=== PATIENT | female | born 1940 | race Caucasian/White ===

== ENCOUNTER 2022-12-10 13:14 | Inpatient (IN) | payer OTHER, BC ==
[~2022-12-10] VITALS: Ht 162.6 cm; Wt 88.0 kg
[2022-12-10 13:15] VITALS: BP_SYST 135
--- NOTE | 2022-12-10 13:17 | NUR ---
Code stroke called at this time
--- NOTE | 2022-12-10 13:19 | NUR ---
PT PRESENTS TO ED C/O LKWT APPROXIMATELY YESTERDAY AFTERNNON, SYMPTOMS REPORTED WERE DIZZINESS AND BEING "TONGUE TIED".PT H/O VERTIGO,R BREAST CA WITH LYMPHNODES REMOVED R ARM AND DM. PT REPORTS DIZZINESS PERSISTS.
--- NOTE | 2022-12-10 13:20 | NUR ---
ER at bedside examining patient.
--- NOTE | 2022-12-10 13:23 | NUR ---
accucheck: blood sugar 185 notified MD Espinoza.
--- NOTE | 2022-12-10 13:23 | NUR ---
Placed in room 01 . Placed on awake overnight monitor, blood pressure machine and pulse oximeter. To gown for exam. Side rails up.
--- NOTE | 2022-12-10 13:24 | NUR ---
Pt to CT via oscar accompanied by SURESH Fu
--- NOTE | 2022-12-10 13:40 | NUR ---
Assumed care of patient with patient alert and oriented x4, vitals as noted observed with sinus tachycardia with occasional PVCS noted, patient denies any pain, patient performing all commands with no problem, from observed with strong ferryboat helper observed bilateral,will continue to monitor p-atient, urine remainbs pending with patient aware ua needed, will continue to monitor patient. Addendum: 12/10/22 at 1453 by [email or web address] report obtained from Terry PRINCE, CHARGE NURSE.
[2022-12-10 13:59] LABS: BASOPHILS % (AUTO) 0.3 % (0.0-2.0); EOSINOPHILS # (AUTO) 0.1 K/uL (0.0-0.4); EOSINOPHILS % (AUTO) 1.5 % (0.0-4.0); HEMATOCRIT 40.9 % (36-48); HEMOGLOBIN 13.7 g/dL (12.0-16.0); LYMPHOCYTES # (AUTO) 1.2 K/uL (1.0-5.5); LYMPHOCYTES % (AUTO) 14.5 % (20.5-51.5); MEAN CORPUSCULAR HEMOGLOBIN 32 pg (27-31); MEAN CORPUSCULAR HGB CONC 33 % (32-36); MEAN CORPUSCULAR VOLUME 97 fL (79.0-98.0); MONOCYTES # (AUTO) 0.2 K/uL (0.0-1.0); MONOCYTES % (AUTO) 2.7 % (1.7-9.3); NEUTROPHILS # (AUTO) 6.5 K/uL (1.8-7.7); PLATELET COUNT (AUTO) 210 K/uL (130-430); RED BLOOD CELL COUNT(AUTO) 4.23 MIL/uL (4.2-6.2); WHITE BLOOD COUNT (AUTO) 8.1 K/uL (4.8-10.8)
[2022-12-10 14:15] LABS: ANION GAP 16 (5-15); CALCIUM 8.4 mg/dL (8.4-11.0); CHLORIDE 99 mmol/L (98-107); CREATININE 1.17 mg/dL (0.55-1.30); GLUCOSE 184 mg/dL (70-99); UREA NITROGEN, BLOOD 17 mg/dL (8-21)
[2022-12-10 14:22] LABS: ALANINE AMINOTRANSFERASE 40 U/L (12-78); ALBUMIN 3.6 g/dL (3.4-4.8); ASPARTATE AMINOTRANSFERASE 51 U/L (10-37); CHOLESTEROL 186 mg/dL (<200); TOTAL BILIRUBIN 0.4 mg/dL (0.0-1.0)
[2022-12-10 14:27] LABS: PROTHROMBIN TIME 10.7 SECS (9.5-12.5)
[2022-12-10] MEDS ORDERED: iohexoL 350 mgI/mL, 100 ML INFUS..BTL IV ONE (15:26)
--- NOTE | 2022-12-10 15:50 | NUR ---
patient remains alert and oriented x4, family at bedside, consent form obtained for CTA of head and neck, patient remains in no acute distress, vitals as noted, denies any pauin, remauns with urine sample pending, per etl data architect patient to ct scan via rney.
[2022-12-10 16:57] LABS: BILIRUBIN,URINE NEGATIVE (NEGATIVE); BLOOD, URINE 2+ (NEGATIVE); CLARITY/URINE CLEAR (CLEAR); COLOR,URINE YELLOW (YELLOW); GLUCOSE,URINE TRACE (NEGATIVE); KETONES,URINE 1+ (NEGATIVE); LEUKOCYTE ESTERASE ,URINE NEGATIVE (NEGATIVE); NITRITE, URINE NEGATIVE (NEGATIVE); PH,URINE 6.5 (5.0-8.0); PROTEIN URINE 2+ (NEGATIVE); UROBILINOGEN,URINE 0.2 (0.2-1.0)
--- NOTE | 2022-12-10 16:58 | NUR ---
COVID SWAB COLLECTED AND SENT TO LAB.
--- NOTE | 2022-12-10 17:03 | NUR ---
Admit bed requested Patient will be admitted to care of [[facility]]. Admitted to [Tele ] unit. Diagnosis [ TIA ] Inpatient (Yes or No) [Yes ] Observation (Yes or No) [No] Orientation concerns or request close to nursing station (Yes or No) [N/A] Covid Status [PENDING] On vent or bipap [N/A] Isolation requirements [N/A] Needs a sitter [N/A] From Home (Yes or if No enter name of facility) [YES] Requires Dialysis (Yes or No) [N/A ] Med Rec Completed (Yes of No) []
[2022-12-10 17:18] LABS: BARBITURATE, URINE NEGATIVE (NEG <=200); BENZODIAZEPINE, URINE NEGATIVE (NEG <=150); CANNABINOID, URINE POSITIVE (NEG <=50); COCAINE, URINE NEGATIVE (NEG <=150); METHAMPHETAMINES SCREEN,URINE NEGATIVE (NEG <=500); OPIATE, URINE NEGATIVE (NEG <=100); PHENCYCLIDINE SCREEN,URINE NEGATIVE (NEG <=25); URINE AMPHETAMINE NEGATIVE (NEG <=500); URINE METHADONE NEGATIVE (NEG <=200); URINE OXYCODONE SCREEN NEGATIVE (NEG <=100); URINE PROPOXYPHENE SCREEN NEGATIVE (NEG <=300)
[2022-12-10 17:19] LABS: BACTERIA,URINE FEW /HPF (None Seen); MUCUS,URINE None Seen /LPF (None Seen); RBC,URINE 0-3 /HPF (0-3); UR TRICYCLIC ANTIDEPRESSANTS NEGATIVE (NEG <=300); WBC,URINE 0-3 /HPF (0-3)
--- NOTE | 2022-12-10 18:44 | NUR ---
SINUS RHYTHM NOTED PATIENT LYING QUIETLY, AWAITING ADMIT BED, VITALS NOTED, PATIENT DENIES ANY PAIN, AWAITING TELEMETRY BED, DAUGHTER AT5 BEDSIDE, WILL CONTINUE TO MONUITOR POATIEN, ALERT AND ORIENTED X4.
[2022-12-10] MEDS ORDERED: DOCUSATE SODIUM 100 MG CAPSULE PO PRN (18:45)
[2022-12-10] MEDS ORDERED: ONDANSETRON HCL 4 MG/2 ML VIAL IVP PRN (18:45)
[2022-12-10] MEDS ORDERED: MAGNESIUM SULFATE 50 ML IV PRN (18:45)
[2022-12-10] MEDS ORDERED: MORPHINE 2 MG/ML INJ. SYRINGE IVP PRN ×2 (18:45)
[2022-12-10] MEDS ORDERED: MUPIROCIN 2% TOPICAL OINTMENT 22 GM NS PRN (18:45)
[2022-12-10] MEDS ORDERED: ACETAMINOPHEN 325 MG TABLET PO PRN ×2 (18:45→19:00)
[2022-12-10] MEDS ORDERED: POTASSIUM CHLORIDE 20 MEQ TAB.PRT.SR PO PRN (18:45)
[2022-12-10] MEDS ORDERED: NALOXONE HCL 0.4 MG/ML AMP (NARCAN) IVP PRN ×2 (18:45)
[2022-12-10] MEDS ORDERED: ZOLPIDEM TARTRATE 5 MG TABLET PO PRN (18:45)
[2022-12-10] MEDS ORDERED: ALPRAZolam 0.25 MG TABLET PO ONE (19:00)
--- NOTE | 2022-12-10 19:10 | NUR ---
PATIENT LEGAL OPERATIONS MANAGER ALARMING WITH OBSERVED HEART RATE 213, PATIENT DENIES CHEST PAIN OR SOB HOWEVER COMPLAINS OF JAW TIGHTNESS, NON-REBREATHER MASK PLACED WITH STAT EKG DONE, EKG SHOWING SINUS TACYCARDIA, WITH BLOOD PRESSURE 140/63, MD AWARE.
[2022-12-10] MEDS ORDERED: cefTRIAXone 1 GM VIAL ONE (19:34)
[2022-12-10] MEDS: cefTRIAXone 1 GM in D5W 50 ML IV SCH (19:35)
[2022-12-10] MEDS: NACL 0.9% 1,000 ML IV SCH (19:36)
--- NOTE | 2022-12-10 22:15 | NUR ---
ADMISSION NOTE Received patient from ER via gurney. Patient admitted with diagnosis of TIA. Patient is awake, alert, oriented X 4. Breathing even and nonlabored on RA. PT has nonproductive cough but denied soared throat. adulatory with assist. No s/s of acute distress or pain at this moment. Patient oriented to hospital room, call light, toileting, pain management and safety-teach back done. Personal belongings checked and Belongings List documented. Call light within reach. continue to monitor
[2022-12-10 22:33] VITALS: BP_SYST 140
--- NOTE | 2022-12-11 00:02 | NUR ---
Rounding Note GA said she couldn't fall a sleep. asked sleeping pill. administer Ambient as ordered. safety checks in place continue to monitor
--- NOTE | 2022-12-11 01:54 | NUR ---
KDur PT's potassium level is 3.1. Given Kdur as ordered.
[2022-12-11 05:45] LABS: BASOPHILS % (AUTO) 0.4 % (0.0-2.0); EOSINOPHILS # (AUTO) 0.2 K/uL (0.0-0.4); EOSINOPHILS % (AUTO) 2.6 % (0.0-4.0); HEMATOCRIT 39.1 % (36-48); HEMOGLOBIN 13.1 g/dL (12.0-16.0); LYMPHOCYTES # (AUTO) 1.7 K/uL (1.0-5.5); LYMPHOCYTES % (AUTO) 24.4 % (20.5-51.5); MEAN CORPUSCULAR HEMOGLOBIN 32 pg (27-31); MEAN CORPUSCULAR HGB CONC 33 % (32-36); MEAN CORPUSCULAR VOLUME 96 fL (79.0-98.0); MONOCYTES # (AUTO) 0.4 K/uL (0.0-1.0); MONOCYTES % (AUTO) 6.2 % (1.7-9.3); NEUTROPHILS # (AUTO) 4.7 K/uL (1.8-7.7); NEUTROPHILS % (AUTO) 66.4 % (40.0-70.0); PLATELET COUNT (AUTO) 216 K/uL (130-430); RED BLOOD CELL COUNT(AUTO) 4.07 MIL/uL (4.2-6.2); RED CELL DISTRIBUTION WIDTH 13.4 % (9.0-15.0); WHITE BLOOD COUNT (AUTO) 7.1 K/uL (4.8-10.8)
[2022-12-11 06:22] LABS: ANION GAP 12 (5-15); CALCIUM 8.3 mg/dL (8.4-11.0); CHLORIDE 104 mmol/L (98-107); CREATININE 0.84 mg/dL (0.55-1.30); GLUCOSE 104 mg/dL (70-99); UREA NITROGEN, BLOOD 12 mg/dL (8-21)
--- NOTE | 2022-12-11 06:49 | NUR ---
Mucus PT reported lots of mucus in her throat and asked medication. called Dr. Monet and notified PT's condition. said he will take care of it.
--- NOTE | 2022-12-11 07:03 | NUR ---
Closing Note PT sitting on the bed and said easier to breath. PT feels hungry and waiting for breakfast. No s/s of acute distress or pain. bed alarm on. safety checks in place. endorsed to day shift nurse
[2022-12-11 08:00] VITALS: BP_SYST 142
--- NOTE | 2022-12-11 08:00 | NUR ---
Start of shift Pt sitting on side of bed eating her breakfast. Tele unit attached and intact. Pt's bed in low position and bed alarm on. Side rails raised and no needs noted. No SOB/resp distress or chest pain/discomfort was noted. No needs noted at this time. Call light within reach.
[2022-12-11] MEDS: ASPIRIN 81 MG TABLET(ECOTRIN) PO SCH (08:23)
[2022-12-11] MEDS: NACL 0.9% 1,000 ML IV SCH (08:23)
[2022-12-11] MEDS: HEPARIN SODIUM,PORCINE 5,000 UNITS/ML VIAL SUBCUT SCH ×2 (08:26→19:58)
--- NOTE | 2022-12-11 08:45 | NUR ---
CONSULT NEUROLOGY TIA JEFFRY RAMACHANDRAN SENT TEXT MESSAGE TO DR AREVALO
[2022-12-11 11:18] VITALS: BP_SYST 127
[2022-12-11] MEDS ORDERED: MECLIZINE HCL 25 MG TABLET (ANITVERT) PO PRN (12:15)
--- NOTE | 2022-12-11 13:30 | NUR ---
Note Pt prefers to sit on side of bed and eat and talk, states when she lies down she starts coughing and gets SOB. Pt's son Yovani was at bedside and other family members throughout the shift. IV in LFA intact and patent infusing IVF's well. Call light within reach.
[2022-12-11] MEDS ORDERED: METO-544 PO (14:16)
[2022-12-11] MEDS ORDERED: SYN50 PO (14:19)
[2022-12-11] MEDS ORDERED: LOVA10TA55 PO (14:19)
[2022-12-11 16:58] VITALS: BP_SYST 145
[2022-12-11] MEDS: cefTRIAXone 1 GM in D5W 50 ML IV SCH (18:05)
--- NOTE | 2022-12-11 18:50 | NUR ---
End of shift Pt sitting on side of bed eating her dinner. Pt's daughter and son (Yovani) at bedside most of shift. Pt's IV in left hand intact and patent infusing IVF's well. Pt was maintained with safety precautions all shift. Pt was checked on q1' and PRN all shift for needs and care. Bed in low position and side rails raised. Call light within reach. Pt's coughing has been persistent throughout the shift.
[2022-12-11 19:55] VITALS: BP_SYST 157
--- NOTE | 2022-12-11 19:55 | NUR ---
PM ASSESSMENT; -Patient is awake, alert, oriented X 4. Pt denies any chest pain,pain,sob,or any acute distress. Pt is sitting on chair with daughter is at bedside. Discussed poc,all safety measures, they verbalized understanding. Patient oriented to hospital room, call light, toileting, pain management and safety-teach back done. IV site patent no s/s any infiltration noted. IVF infusing well. side rails x2, Call light within reach. Cont to monitor pt.
[2022-12-11] MEDS: guaiFENesin 200 MG/10 ML UDC PO PRN (19:56)
[2022-12-11] MEDS: LORazepam 2 MG/ML VIAL IVP PRN (19:58)
--- NOTE | 2022-12-11 19:58 | NUR ---
NOTES; ATIVAN 1MG IVP GIVEN UPON PT REQUEST -Pt is laying in bed while given Ativan IVP. Instructed pt and dtr safety issue regarding side effects of Ativan including dizziness, unsteady gaits and fall risk, not to get OOB w/o using call light for assistance, pt verbalized she will call when she needs to use bathroom. Bed alarmed, side rails x3 ,call light w/in reach. Cont to monitor pt.
--- NOTE | 2022-12-11 20:25 | NUR ---
NOTES; -Pt went to bathroom with unsteady gaits, assisting pt back to bed safely and instructed pt to get OOB bed by herself, she verbalized that she won't. She stated that she doesn't feel good after received Ativan. Askd pt how she feels, she said that she feel dizziness. Reminded pt that it is the Ativan side effect. Suggested Purewick to avoid using bathroom at night d/t unsteady gaits this time, pt agreed to have Purewick in place. Bed alarmed, side rails x3,call light w/in reach. Cont to monitor pt.
--- NOTE | 2022-12-11 22:06 | NUR ---
NOTES; -Pt is now out of bed w/o using a call light. Pt stated," I don't feel right and feel funny." Asked pt in detail what is feel funny and not right mean. She elaborated that she feel dizzy and see many people. Informed pt that is the side effect of Ativan. Will move pt to closer to Nurses' station once room is cleaned. Now, pt is resting in bed. bed alarmed, side rails x3,call light w/in reach. Monitoring pt at bedside. Cont to monitor pt.
[2022-12-12 00:15] VITALS: BP_SYST 180
[2022-12-12] MEDS ORDERED: cloNIDine HCL 0.1 MG TABLET PO ONE (00:15)
--- NOTE | 2022-12-12 00:15 | NUR ---
NOTES; NOTIFIED Mauricio CAMPBELL REGARDING ELEVATED MJ=534/82, RETOOK OS=401/70, -MD ORDERED CLONIDINE 0.2MG PO X1 NOW PER MD. WILL GIVE WHEN AVAILABLE IN [facility].
[2022-12-12] MEDS: guaiFENesin 200 MG/10 ML UDC PO PRN ×2 (00:20→04:41)
[2022-12-12] MEDS: NACL 0.9% 1,000 ML IV SCH (00:21)
--- NOTE | 2022-12-12 00:24 | NUR ---
NOTES; -Pt is sitting on bed. Gave Clonidine 0.2mg po for elevated JR=915/70 and Robitussin for cough. Pt stated that she couldn't sleep now. Pt denies any chest pain,pain,sob,or any acute distress except unable to sleep. Fall precaution in place, bed alarmed, side rails x3,call light w/in reach. Cont to monitor pt.
--- NOTE | 2022-12-12 00:40 | NUR ---
NOTES; MULTIPLE TIMES PATIENT GOT OOB W/OUT USING CALL LIGHT FOR ASSISTANCE -Pt is noncompliance with to use call light for assistance when needs to use bathroom. She stated," still can't sleep and goes crazy" Assisting pt to bathroom and returned to bed safely. Bed alarm in place, call light w/in reach. Closely monitor pt at bedside.
--- NOTE | 2022-12-12 01:50 | NUR ---
ROUNDS; -Pt is asleep. No s/s any acute distress noted. All safety measures in place. Call light w/in reach. Cont to monitor pt.
--- NOTE | 2022-12-12 03:15 | NUR ---
NOTES; MOVED PATIENT TO CLOSER NURSES' STATION TO PREVENT FALL -Moved pt from room 117-A to 105-A to prevent fall d/t pt was little forgetfulness, unsteady gaits, dizziness, and multiple times got out of bed w/out using call light for assistance. Bed alarmed, call light w/in reach. Cont to monitor pt.
--- NOTE | 2022-12-12 04:06 | NUR ---
ROUNDS; -Pt is sitting up in bed eating applesauce and jello. Pt stated that she can't sleep because she is coughing and has phlegm. Pt's condition stable. Bed alarmed, call light w/in reach. Cont to monitor pt closely near bedside.
--- NOTE | 2022-12-12 06:01 | NUR ---
FOLLOW UP CONSULT CALLED WITH DOCTOR SHAH
[2022-12-12 06:04] LABS: BASOPHILS % (AUTO) 0.6 % (0.0-2.0); EOSINOPHILS # (AUTO) 0.2 K/uL (0.0-0.4); EOSINOPHILS % (AUTO) 2.5 % (0.0-4.0); HEMATOCRIT 38.8 % (36-48); HEMOGLOBIN 13.1 g/dL (12.0-16.0); LYMPHOCYTES # (AUTO) 1.6 K/uL (1.0-5.5); LYMPHOCYTES % (AUTO) 24.8 % (20.5-51.5); MEAN CORPUSCULAR HEMOGLOBIN 32 pg (27-31); MEAN CORPUSCULAR HGB CONC 34 % (32-36); MEAN CORPUSCULAR VOLUME 96 fL (79.0-98.0); MONOCYTES # (AUTO) 0.4 K/uL (0.0-1.0); MONOCYTES % (AUTO) 6.9 % (1.7-9.3); NEUTROPHILS # (AUTO) 4.2 K/uL (1.8-7.7); NEUTROPHILS % (AUTO) 65.2 % (40.0-70.0); PLATELET COUNT (AUTO) 230 K/uL (130-430); RED BLOOD CELL COUNT(AUTO) 4.04 MIL/uL (4.2-6.2); RED CELL DISTRIBUTION WIDTH 13.1 % (9.0-15.0); WHITE BLOOD COUNT (AUTO) 6.4 K/uL (4.8-10.8)
[2022-12-12 06:06] LABS: ANION GAP 10 (5-15); CALCIUM 8.4 mg/dL (8.4-11.0); CHLORIDE 102 mmol/L (98-107); CREATININE 0.79 mg/dL (0.55-1.30); GLUCOSE 128 mg/dL (70-99); UREA NITROGEN, BLOOD 11 mg/dL (8-21)
--- NOTE | 2022-12-12 06:38 | NUR ---
CLOSING NOTES; -Pt is restlessness entire night. Pt is now sitting up on the bed. All safety measures in place. Call light w/in reach, bed alarmed. Pt's condition stable. Will endorse to next nurse to continuity of care.
--- NOTE | 2022-12-12 06:49 | NUR ---
CLOSING NOTES; -Pt is now sitting in the chair. All safety measures in place, side rails x2,Call light w/in reach.Will endorse to next nurse to continuity of care.
[2022-12-12 08:00] VITALS: BP_SYST 124
--- NOTE | 2022-12-12 09:20 | NUR ---
patient to have mri of brain done, report anxiety and calustrophobia, son declines iv ativan due to believed adverse reaction, telephone order obtained from Dr. Monet for one time po dose of xanax, will administer when verified by pharmacy
[2022-12-12] MEDS: LORazepam 2 MG/ML VIAL IVP PRN (09:23)
[2022-12-12] MEDS: ASPIRIN 81 MG TABLET(ECOTRIN) PO SCH (09:27)
[2022-12-12] MEDS: HEPARIN SODIUM,PORCINE 5,000 UNITS/ML VIAL SUBCUT SCH (09:29)
[2022-12-12] MEDS ORDERED: ALPRAZolam 0.25 MG TABLET PO ONE (09:45)
[2022-12-12] MEDS ORDERED: MECL-225 PO (09:47)
[2022-12-12] MEDS ORDERED: LEVOTHYROXINE SODIUM 0.05 MG TABLET PO ONE (10:00)
[2022-12-12] MEDS ORDERED: cloNIDine HCL 0.1 MG TABLET PO PRN (10:00)
[2022-12-12] MEDS ORDERED: METOPROLOL SUCCINATE 50 MG TAB.SR.24H (TOPROL XL) PO ONE (10:00)
--- NOTE | 2022-12-12 10:40 | NUR ---
patient transported to mri
--- NOTE | 2022-12-12 10:50 | NUR ---
PHYSICAL THERAPY CO-SIGN The Physical Therapy Progress Notes documented by Reducing System Operator have been reviewed. Reviewed/Co-Signed by: Shai Acosta Documentation Done by:BENITEZ MCGRAW Addendum: 12/12/22 at 1050 by Shai Acosta PT Amended: Links added.
[2022-12-12 11:33] VITALS: BP_SYST 124
--- NOTE | 2022-12-12 12:01 | NUR ---
faxed pt information to [facility] ([place]) for PT phone#[phone] will follow up if they're accepting. Addendum: 12/12/22 at 1226 by Loretta BIGGS [facility] is accepting the pt. waiting for discharge order.
--- NOTE | 2022-12-12 13:42 | NUR ---
telephone call to dr. salcido to relay mri results, per md patient can be dc home
[2022-12-12 14:00] VITALS: BP_SYST 124
--- NOTE | 2022-12-12 14:30 | NUR ---
dc complete while providing education to patient family requesting rx for prn anxiety medication, telephone call to dr. schafer and he will call in to pharmacy
--- NOTE | 2022-12-12 15:01 | NUR ---
Patient accepted with [facility] phone# [phone]. Agency to contact patient
[2022-12-12 15:07] VITALS: BP_SYST 129
--- NOTE | 2022-12-12 15:30 | NUR ---
patient dc home, education provided regarding medications, disease process, follow up appointments and when to seek medical attention, all concerns adressed, iv dc with cath intact, patient wheeled to lobby by geoscience technician and transported home by family
[2022-12-12] MEDS ORDERED: ALPR0.25 PO (15:37)
--- NOTE | 2022-12-12 16:33 | NUR ---
faxed pt order to [facility] phone#[phone]
[2022-12-13] MEDS ORDERED: LEVOTHYROXINE SODIUM 0.05 MG TABLET PO SCH (07:00)
[2022-12-13] MEDS ORDERED: METOPROLOL SUCCINATE 50 MG TAB.SR.24H (TOPROL XL) PO SCH (09:00)
== END 2022-12-12 15:15 | disposition home health service (06) | DRG 74 ==
LOC: SED 13:14 → STU 17:01
PROVIDERS: ADMIT General Practice; ATTEND General Practice
DX: G90.9 Disorder of the autonomic nervous system, unspecified (principal); G45.0 Vertebro-basilar artery syndrome; N39.0 Urinary tract infection, site not specified; G45.9 Transient cerebral ischemic attack, unspecified; R73.03 Prediabetes; E66.9 Obesity, unspecified; Z20.822 Contact with and (suspected) exposure to COVID-19; Z87.891 Personal history of nicotine dependence; Z85.3 Personal history of malignant neoplasm of breast; Z68.33 Body mass index [BMI] 33.0-33.9, adult
CPT/HCPCS: 36415; 70450-TC; 70496; 70498; 70551; 71045; 76376; 80048; 80053; 80307; 81000; 82465; 83037; 83735; 84443; 84484; 85025; 85610-TC; 85730-TC; 86886; 86900; 86901; 93005; 97110-GP; 97112-GP; 97116-GP; 97530-GP; 99291; G0378; J0696; J1644; J2060; J7030; J7060; Q9967

== ENCOUNTER 2023-02-04 01:36 | Emergency (ER) | payer OTHER, BC ==
[~2023-02-04] VITALS: Ht 160 cm; Wt 88.5 kg
[~2023-02-04 01:36] MED LIST: ALPR0.25 PO; LOVA10TA55 PO; MECL-225 PO; METO-544 PO; SYN50 PO
[2023-02-04 01:54] VITALS: BP_SYST 97; PULSE 220; RESP 17; TEMP 97.5; O2SAT 95
[2023-02-04] MEDS ORDERED: ADENOSINE 6MG/2ML VIAL ONE (02:19)
[2023-02-04] MEDS ORDERED: ADENOSINE 6MG/2ML VIAL IVP ONE ×2 (02:30)
[2023-02-04 02:32] LABS: BASOPHILS # (AUTO) 0.1 K/uL (0.0-0.2); BASOPHILS % (AUTO) 0.5 % (0.0-2.0); EOSINOPHILS # (AUTO) 0.2 K/uL (0.0-0.4); EOSINOPHILS % (AUTO) 1.7 % (0.0-4.0); HEMATOCRIT 40.6 % (36-48); HEMOGLOBIN 13.5 g/dL (12.0-16.0); LYMPHOCYTES # (AUTO) 3.8 K/uL (1.0-5.5); LYMPHOCYTES % (AUTO) 29.3 % (20.5-51.5); MEAN CORPUSCULAR HEMOGLOBIN 32 pg (27-31); MEAN CORPUSCULAR HGB CONC 33 % (32-36); MEAN CORPUSCULAR VOLUME 96 fL (79.0-98.0); MONOCYTES # (AUTO) 0.5 K/uL (0.0-1.0); MONOCYTES % (AUTO) 3.6 % (1.7-9.3); NEUTROPHILS # (AUTO) 8.5 K/uL (1.8-7.7); NEUTROPHILS % (AUTO) 64.9 % (40.0-70.0); PLATELET COUNT (AUTO) 257 K/uL (130-430); RED BLOOD CELL COUNT(AUTO) 4.24 MIL/uL (4.2-6.2); RED CELL DISTRIBUTION WIDTH 12.9 % (9.0-15.0); WHITE BLOOD COUNT (AUTO) 13.1 K/uL (4.8-10.8)
[2023-02-04 03:08] LABS: ALANINE AMINOTRANSFERASE 45 U/L (12-78); ALBUMIN 3.5 g/dL (3.4-4.8); ANION GAP 13 (5-15); ASPARTATE AMINOTRANSFERASE 47 U/L (10-37); CALCIUM 8.5 mg/dL (8.4-11.0); CHLORIDE 103 mmol/L (98-107); CREATININE 1.06 mg/dL (0.55-1.30); GLUCOSE 237 mg/dL (70-99); PHOSPHORUS 4.8 mg/dL (2.7-4.5); THYROID STIMULATING HORMONE 5.11 uIu/mL (0.36-3.74); TOTAL BILIRUBIN 0.2 mg/dL (0.0-1.0); UREA NITROGEN, BLOOD 17 mg/dL (8-21)
[2023-02-04] MEDS ORDERED: NACL 0.9% 1,000 ML IV ONE (03:15)
[2023-02-04 04:37] VITALS: BP_SYST 126; PULSE 88; RESP 18; TEMP 98.4; O2SAT 97
== END 2023-02-04 04:37 | disposition home or self-care (01) ==
LOC: SED 01:36
DX: I47.1 Supraventricular tachycardia (principal); R42 Dizziness and giddiness; R07.9 Chest pain, unspecified; Z79.899 Other long term (current) drug therapy
CPT/HCPCS: 99291; 96374; 71045; 80053; 83880; 83735; 84100; 84443; 85025; 87040; 84484; 36415; 83605; 99152; 93005; J0153

== ENCOUNTER 2023-02-09 16:11 | Emergency (ER) | payer OTHER, BC ==
[~2023-02-09] VITALS: Ht 160 cm; Wt 88.5 kg
[2023-02-09 16:38] VITALS: BP_SYST 166
--- NOTE | 2023-02-09 16:44 | NUR ---
Placed in room 6 . Placed on cafeteria monitor, blood pressure machine and pulse oximeter. To gown for exam. Side rails up. Report given to
--- NOTE | 2023-02-09 16:45 | NUR ---
ER at bedside examining patient.
--- NOTE | 2023-02-09 16:45 | NUR ---
PT BIB AWAKE AND ALERT AOX4. NO SOB OR DISTRESS. PT C/O DIZZY SPELLS AT HOME X3 AND HIGH BEING TACKYCARDIC AT HOME WITH HR > 200. IN TRIAGE AND AND BEDSIDE HER HR WAS 105. PT HAS HX OF BREAST CANCER, HYPOTHYROID, HLD. PT DENIES N/V/D, AND PAIN
[2023-02-09 17:08] LABS: BASOPHILS % (AUTO) 0.5 % (0.0-2.0); EOSINOPHILS # (AUTO) 0.2 K/uL (0.0-0.4); EOSINOPHILS % (AUTO) 2.5 % (0.0-4.0); HEMATOCRIT 40.6 % (36-48); HEMOGLOBIN 13.9 g/dL (12.0-16.0); LYMPHOCYTES # (AUTO) 2.8 K/uL (1.0-5.5); LYMPHOCYTES % (AUTO) 31.1 % (20.5-51.5); MEAN CORPUSCULAR HEMOGLOBIN 33 pg (27-31); MEAN CORPUSCULAR HGB CONC 34 % (32-36); MEAN CORPUSCULAR VOLUME 95 fL (79.0-98.0); MONOCYTES # (AUTO) 0.6 K/uL (0.0-1.0); MONOCYTES % (AUTO) 6.5 % (1.7-9.3); NEUTROPHILS # (AUTO) 5.4 K/uL (1.8-7.7); NEUTROPHILS % (AUTO) 59.4 % (40.0-70.0); PLATELET COUNT (AUTO) 245 K/uL (130-430); RED BLOOD CELL COUNT(AUTO) 4.26 MIL/uL (4.2-6.2); WHITE BLOOD COUNT (AUTO) 9.1 K/uL (4.8-10.8)
[2023-02-09 17:10] LABS: ANION GAP 11 (5-15); CALCIUM 8.7 mg/dL (8.4-11.0); CHLORIDE 102 mmol/L (98-107); CREATININE 0.83 mg/dL (0.55-1.30); GLUCOSE 126 mg/dL (70-99); UREA NITROGEN, BLOOD 16 mg/dL (8-21)
[2023-02-09 17:16] LABS: ALANINE AMINOTRANSFERASE 24 U/L (12-78); ALBUMIN 3.8 g/dL (3.4-4.8); ASPARTATE AMINOTRANSFERASE 21 U/L (10-37); TOTAL BILIRUBIN 0.3 mg/dL (0.0-1.0)
[2023-02-09 17:45] LABS: THYROID STIMULATING HORMONE 1.79 uIu/mL (0.34-4.82)
--- NOTE | 2023-02-09 19:33 | NUR ---
Patient does not wish to proceed with medical care recommended by DR. AGUERO. Patient given information related to possible complications, up to and including , which could occur as a result of leaving hospital at this time. Patient verbalizes understanding of risks involved leaving against medical advice. Patient has signed AMA form.
== END 2023-02-09 19:33 | disposition left against medical advice (07) ==
LOC: SED 16:11
DX: I49.3 Ventricular premature depolarization (principal); R00.0 Tachycardia, unspecified; R55 Syncope and collapse; Z85.3 Personal history of malignant neoplasm of breast; Z79.899 Other long term (current) drug therapy
CPT/HCPCS: 36415; 71045; 80053; 83880; 84439; 84443; 84484; 85025; 93005; 99285